=== PATIENT | female | born 1985 | race Caucasian/White ===

== ENCOUNTER 2017-06-08 21:43 | Emergency (ER) | payer SELFPAY | END 2017-06-08 22:58 | disposition home or self-care (01) | LOC: D.ER 21:43 | DX: S63.501A Unspecified sprain of right wrist, initial encounter (principal); X50.0XXA Overexertion from strenuous movement or load, initial encounter; Y93.89 Activity, other specified; Y92.029 Unspecified place in mobile home as the place of occurrence of the external cause; F17.200 Nicotine dependence, unspecified, uncomplicated ==

== ENCOUNTER 2017-10-25 09:29 | Emergency (ER) | payer MEDICAID | END 2017-10-25 10:30 | disposition home or self-care (01) | LOC: D.ER 09:29 | DX: M79.642 Pain in left hand (principal); M79.641 Pain in right hand; F17.200 Nicotine dependence, unspecified, uncomplicated ==

== ENCOUNTER 2017-12-17 09:48 | Emergency (ER) | payer MEDICAID ==
[2017-12-17 10:45] LABS: BASOPHILS 0.3 % (0-2); EOSINOPHILS 1.2 % (0-7); HEMATOCRIT 39.6 % (36.0-48.0); HEMOGLOBIN 13.4 g/dL (12-16); IMMATURE GRANULOCYTES 0.3 % (0-5); LYMPHOCYTES 18.1 % (15-50); MCH 30.2 pg (26.0-34.0); MCHC 33.8 g/dL (31.0-37.0); MCV 89.4 fL (80.0-100.0); MEAN PLATELET VOLUME 9.9 fL (7.4-10.4); NEUTROPHILS 72.1 % (40-80); PLATELET COUNT 298 10x3/uL (130-400); RBC 4.43 10x6/uL (4.00-5.40); RDW 14.6 % (11.5-14.5); WBC 11.9 10x3/uL (4.8-10.8)
[2017-12-17 10:57] LABS: HCG SERUM POSITIVE (NEGATIVE)
[2017-12-17 12:18] LABS: APPEARANCE CLEAR (CLEAR); BILIRUBIN NEGATIVE (NEGATIVE); COLOR PINK (YELLOW); GLUCOSE NEGATIVE (NEGATIVE); KETONE NEGATIVE (NEGATIVE); NITRITE NEGATIVE (NEGATIVE); PROTEIN NEGATIVE (NEGATIVE); SPECIFIC GRAVITY 1.005 (1.005-1.020); UROBILINOGEN NORMAL (NORMAL)
[2017-12-17 12:19] LABS: BACTERIA MODERATE /hpf (NONE SEEN); WHITE CELLS - URINE 0-5 /hpf (0-5)
== END 2017-12-17 12:45 | disposition home or self-care (01) ==
LOC: D.ER 09:48
PROVIDERS: Emergency Medicine
DX: O23.41 Unspecified infection of urinary tract in pregnancy, first trimester (principal); Z3A.08 8 weeks gestation of pregnancy; N76.0 Acute vaginitis; B96.89 Other specified bacterial agents as the cause of diseases classified elsewhere

== ENCOUNTER → 2018-06-07 15:26 | Outpatient (CLI) | payer MEDICAID ==
[2018-06-07 16:20] LABS: APPEARANCE CLEAR (CLEAR); BILIRUBIN NEGATIVE (NEGATIVE); COLOR YELLOW (YELLOW); GLUCOSE NEGATIVE (NEGATIVE); KETONE NEGATIVE (NEGATIVE); NITRITE NEGATIVE (NEGATIVE); PROTEIN NEGATIVE (NEGATIVE); SPECIFIC GRAVITY 1.015 (1.005-1.020); UROBILINOGEN NORMAL (NORMAL)
[2018-06-07 16:22] LABS: UDS - AMPHET NEGATIVE QUAL (NEGATIVE); UDS - BARB NEGATIVE QUAL (NEGATIVE); UDS - BENZO NEGATIVE QUAL (NEGATIVE); UDS - COCAINE NEGATIVE QUAL (NEGATIVE); UDS - OPIATE NEGATIVE QUAL (NEGATIVE); UDS - PCP NEGATIVE QUAL (NEGATIVE); UDS - THC POSITIVE QUAL (NEGATIVE)
[2018-06-07 16:27] LABS: BACTERIA FEW /hpf (NONE SEEN); EPITHELIAL CELLS 0-5 /hpf (0-5); WHITE CELLS - URINE 0-5 /hpf (0-5)
== END | disposition home or self-care (01) ==
LOC: D.LDO 15:26
PROVIDERS: Obstetrics & Gynecology
DX: O26.893 Other specified pregnancy related conditions, third trimester (principal); Z3A.31 31 weeks gestation of pregnancy

== ENCOUNTER → 2018-06-21 10:20 | Outpatient (CLI) | payer MEDICAID ==
[2018-06-21 11:33] LABS: APPEARANCE CLEAR (CLEAR); BILIRUBIN NEGATIVE (NEGATIVE); COLOR YELLOW (YELLOW); GLUCOSE NEGATIVE (NEGATIVE); KETONE NEGATIVE (NEGATIVE); NITRITE NEGATIVE (NEGATIVE); PROTEIN NEGATIVE (NEGATIVE); UROBILINOGEN NORMAL (NORMAL)
[2018-06-21 11:35] LABS: BACTERIA MODERATE /hpf (NONE SEEN); EPITHELIAL CELLS 0-5 /hpf (0-5); RED CELLS - URINE 0-5 /hpf (0-5); WHITE CELLS - URINE 0-5 /hpf (0-5)
== END | disposition home or self-care (01) ==
LOC: D.LDO 10:20
PROVIDERS: Obstetrics & Gynecology
DX: O26.893 Other specified pregnancy related conditions, third trimester (principal); Z3A.31 31 weeks gestation of pregnancy

== ENCOUNTER → 2018-07-02 09:46 | Outpatient (CLI) | payer MEDICAID ==
[2018-07-02 10:38] LABS: APPEARANCE CLEAR (CLEAR); BACTERIA MODERATE /hpf (NONE SEEN); BILIRUBIN NEGATIVE (NEGATIVE); COLOR YELLOW (YELLOW); GLUCOSE NEGATIVE (NEGATIVE); KETONE NEGATIVE (NEGATIVE); MUCUS <1+ /lpf (NONE SEEN); NITRITE NEGATIVE (NEGATIVE); PROTEIN NEGATIVE (NEGATIVE); RED CELLS - URINE RARE /hpf (0-5); UROBILINOGEN NORMAL (NORMAL); WHITE CELLS - URINE OCC /hpf (0-5)
== END | disposition home or self-care (01) ==
LOC: D.LDO 09:46
PROVIDERS: Obstetrics & Gynecology
DX: O26.899 Other specified pregnancy related conditions, unspecified trimester (principal); Z3A.00 Weeks of gestation of pregnancy not specified; R10.9 Unspecified abdominal pain

== ENCOUNTER 2018-07-12 01:56 | Outpatient (CLI) | payer MEDICAID ==
[2018-07-12 01:26] LABS: APPEARANCE CLEAR (CLEAR); BILIRUBIN NEGATIVE (NEGATIVE); COLOR YELLOW (YELLOW); GLUCOSE NEGATIVE (NEGATIVE); KETONE NEGATIVE (NEGATIVE); NITRITE NEGATIVE (NEGATIVE); PROTEIN NEGATIVE (NEGATIVE); UROBILINOGEN NORMAL (NORMAL)
[2018-08-08 09:39] VITALS: BMI 41.3
== END 2018-07-12 02:07 | disposition home or self-care (01) ==
LOC: D.LDO 01:56
PROVIDERS: Obstetrics & Gynecology
DX: O26.893 Other specified pregnancy related conditions, third trimester (principal); Z3A.36 36 weeks gestation of pregnancy; R10.30 Lower abdominal pain, unspecified; R10.2 Pelvic and perineal pain

== ENCOUNTER → 2018-07-20 09:00 | Outpatient (CLI) | payer MEDICAID ==
[~2018-07-20 09:00] MED LIST: ALBUTEROL SULF8.5 GM; IBUPROFEN600 MG PO; NORCO 10-325 TA1 TAB PO; PEPCID AC20 MG
[2018-08-08 09:39] VITALS: BMI 41.3
== END | disposition home or self-care (01) ==
LOC: D.LDO 09:00
DX: O36.8130 Decreased fetal movements, third trimester, not applicable or unspecified (principal); Z3A.37 37 weeks gestation of pregnancy; Z37.9 Outcome of delivery, unspecified

== ENCOUNTER → 2018-07-25 14:38 | Outpatient (CLI) | payer MEDICAID ==
[2018-08-08 09:39] VITALS: BMI 41.3
== END | disposition home or self-care (01) ==
LOC: D.LDO 14:38
DX: O26.893 Other specified pregnancy related conditions, third trimester (principal); Z3A.38 38 weeks gestation of pregnancy

== ENCOUNTER 2018-07-28 05:14 | Inpatient (IN) | payer MEDICAID ==
[~2018-07-28] VITALS: Ht 162.6 cm; Wt 117.9 kg
[2018-07-28 05:25] VITALS: BP 121/64; Ht 162.6 cm; Wt 117.9 kg
[2018-07-28 06:12] LABS: HEMOGLOBIN 11.3 g/dL (12-16); MCH 30.1 pg (26.0-34.0); MCHC 33.2 g/dL (31.0-37.0); MCV 90.7 fL (80.0-100.0); MEAN PLATELET VOLUME 9.8 fL (7.4-10.4); RBC 3.75 10x6/uL (4.00-5.40); RDW 15.1 % (11.5-14.5); WBC 19.1 10x3/uL (4.8-10.8)
[2018-07-28 06:50] LABS: APPEARANCE CLEAR (CLEAR); BILIRUBIN NEGATIVE (NEGATIVE); COLOR YELLOW (YELLOW); GLUCOSE NEGATIVE (NEGATIVE); KETONE NEGATIVE (NEGATIVE); NITRITE NEGATIVE (NEGATIVE); PROTEIN NEGATIVE (NEGATIVE); UROBILINOGEN NORMAL (NORMAL)
[2018-07-28 07:13] LABS: UDS - AMPHET NEGATIVE QUAL (NEGATIVE); UDS - BARB NEGATIVE QUAL (NEGATIVE); UDS - BENZO NEGATIVE QUAL (NEGATIVE); UDS - COCAINE NEGATIVE QUAL (NEGATIVE); UDS - OPIATE NEGATIVE QUAL (NEGATIVE); UDS - PCP NEGATIVE QUAL (NEGATIVE); UDS - THC NEGATIVE QUAL (NEGATIVE)
[2018-07-29 07:29] LABS: RAPID PLASMA REAGIN Non Reactive (Non Reactive)
== END 2018-07-28 21:00 | disposition home or self-care (01) | DRG 833 ==
LOC: D.LD 05:14
PROVIDERS: Obstetrics & Gynecology
PROC: 3E033VJ Introduction of Other Hormone into Peripheral Vein, Percutaneous Approach (ICD-10-PCS; principal; 2018-07-28)
DX: O99.213 Obesity complicating pregnancy, third trimester (principal); Z3A.39 39 weeks gestation of pregnancy; Z87.891 Personal history of nicotine dependence; O99.820 Streptococcus B carrier state complicating pregnancy; O26.893 Other specified pregnancy related conditions, third trimester; Z67.91 Unspecified blood type, Rh negative; O61.0 Failed medical induction of labor

== ENCOUNTER 2018-07-31 05:07 | Inpatient (IN) | payer MEDICAID ==
[~2018-07-31] VITALS: Ht 162.6 cm; Wt 117.9 kg
[2018-07-31] VITALS (13 sets, daily range): BP systolic 113–135; BP diastolic 62–90; Ht 162.6 cm; Wt 117.9 kg
[2018-07-31] MEDS ORDERED: ALBUTEROL SULF8.5 GM (05:34)
[2018-07-31] MEDS ORDERED: PEPCID AC20 MG (05:36)
[2018-07-31 06:45] LABS: HEMATOCRIT 32.5 % (36.0-48.0); HEMOGLOBIN 10.8 g/dL (12-16); MCH 29.6 pg (26.0-34.0); MCHC 33.2 g/dL (31.0-37.0); MEAN PLATELET VOLUME 9.9 fL (7.4-10.4); RBC 3.65 10x6/uL (4.00-5.40); WBC 21.6 10x3/uL (4.8-10.8)
[2018-07-31 07:01] LABS: APPEARANCE HAZY (CLEAR); BILIRUBIN NEGATIVE (NEGATIVE); COLOR YELLOW (YELLOW); GLUCOSE NEGATIVE (NEGATIVE); KETONE NEGATIVE (NEGATIVE); NITRITE NEGATIVE (NEGATIVE); PH 6.5 (5.0-6.0); PROTEIN NEGATIVE (NEGATIVE); UROBILINOGEN NORMAL (NORMAL)
[2018-07-31 07:58] LABS: UDS - AMPHET NEGATIVE QUAL (NEGATIVE); UDS - BARB NEGATIVE QUAL (NEGATIVE); UDS - BENZO NEGATIVE QUAL (NEGATIVE); UDS - COCAINE NEGATIVE QUAL (NEGATIVE); UDS - OPIATE NEGATIVE QUAL (NEGATIVE); UDS - PCP NEGATIVE QUAL (NEGATIVE); UDS - THC NEGATIVE QUAL (NEGATIVE)
[2018-07-31 20:17] LABS: BASOPHILS 0.4 % (0-2); EOSINOPHILS 1.1 % (0-7); HEMATOCRIT 29.9 % (36.0-48.0); HEMOGLOBIN 9.9 g/dL (12-16); MCHC 33.1 g/dL (31.0-37.0); MCV 90.6 fL (80.0-100.0); MEAN PLATELET VOLUME 9.9 fL (7.4-10.4); MONOCYTES 5.8 % (2-11); NEUTROPHILS 75.7 % (40-80); PLATELET COUNT 361 10x3/uL (130-400); WBC 23.9 10x3/uL (4.8-10.8)
[2018-08-01 04:08] LABS: RAPID PLASMA REAGIN Non Reactive (Non Reactive)
[2018-08-01 04:32] VITALS: BP 122/58
[2018-08-01 06:27] LABS: HEMATOCRIT 30.2 % (36.0-48.0); HEMOGLOBIN 10.4 g/dL (12-16); RBC 3.45 10x6/uL (4.00-5.40); WBC 21.1 10x3/uL (4.8-10.8)
[2018-08-01 06:28] LABS: LYMPHOCYTES 11.9 % (15-50); MCH 30.1 pg (26.0-34.0); MCHC 34.4 g/dL (31.0-37.0); MCV 87.5 fL (80.0-100.0); MEAN PLATELET VOLUME 9.9 fL (7.4-10.4); NEUTROPHILS 83.9 % (40-80); PLATELET COUNT 390 10x3/uL (130-400); RDW 14.5 % (11.5-14.5)
[2018-08-01 07:25] VITALS: BP 113/55
[2018-08-01] MEDS ORDERED: NORCO 10-325 TA1 TAB PO (09:56)
[2018-08-01] MEDS ORDERED: IBUPROFEN600 MG PO (09:57)
== END 2018-08-01 13:15 | disposition home or self-care (01) | DRG 788 ==
LOC: D.LD 05:07
PROVIDERS: Obstetrics & Gynecology
PROC: 10907ZC Drainage of Amniotic Fluid, Therapeutic from Products of Conception, Via Natural or Artificial Opening (ICD-10-PCS; 2018-07-31)
PROC: 3E033VJ Introduction of Other Hormone into Peripheral Vein, Percutaneous Approach (ICD-10-PCS; 2018-07-31)
PROC: 10D00Z1 Extraction of Products of Conception, Low, Open Approach (ICD-10-PCS; principal; 2018-07-31 13:42)
DX: O99.824 Streptococcus B carrier state complicating childbirth (principal); Z3A.39 39 weeks gestation of pregnancy; Z37.0 Single live birth; O32.6XX0 Maternal care for compound presentation, not applicable or unspecified; O99.334 Smoking (tobacco) complicating childbirth

== ENCOUNTER 2018-08-08 09:17 | Emergency (ER) | payer MEDICAID ==
[~2018-08-08] VITALS: Ht 162.6 cm; Wt 109.1 kg
[2018-08-08 09:39] VITALS: Ht 162.6 cm; Wt 109.1 kg
[2018-08-08 11:44] VITALS: BP 122/77
== END 2018-08-08 11:45 | disposition home or self-care (01) ==
LOC: D.ER 09:17
DX: O90.0 Disruption of cesarean delivery wound (principal); F17.200 Nicotine dependence, unspecified, uncomplicated

== ENCOUNTER 2019-02-16 14:04 | Emergency (ER) | payer MEDICAID ==
[2019-02-16 14:27] VITALS: BMI 36.4
[2019-02-16] MEDS ORDERED: VIBRAMYCIN 100100 MG PO (16:17)
[2019-02-16] MEDS ORDERED: TORADOL10 MG PO (16:17)
[2019-02-16 16:42] VITALS: BP 129/73
== END 2019-02-16 16:43 | disposition home or self-care (01) ==
LOC: D.ER 14:04
DX: L02.31 Cutaneous abscess of buttock (principal); H01.003 Unspecified blepharitis right eye, unspecified eyelid

== ENCOUNTER 2019-05-31 17:31 | Emergency (ER) | payer MEDICAID ==
[~2019-05-31] VITALS: Ht 162.6 cm; Wt 90.9 kg
[~2019-05-31 17:31] MED LIST changes: +TORADOL10 MG PO; +VIBRAMYCIN 100100 MG PO
[2019-05-31 18:03] VITALS: BP 129/86; Ht 162.6 cm; Wt 90.9 kg
[2019-05-31] MEDS ORDERED: NAPROSYN500 MG PO (19:35)
[2019-05-31] MEDS ORDERED: CLEOCIN HCL300 MG PO (19:35)
== END 2019-05-31 20:10 | disposition home or self-care (01) ==
LOC: D.ER 17:31
DX: S01.511A Laceration without foreign body of lip, initial encounter (principal); W19.XXXA Unspecified fall, initial encounter

== ENCOUNTER 2020-05-17 20:28 | Emergency (ER) | payer MEDICAID ==
[~2020-05-17] VITALS: Ht 162.6 cm; Wt 104.5 kg
[~2020-05-17 20:28] MED LIST changes: +CLEOCIN HCL300 MG PO; +NAPROSYN500 MG PO
[2020-05-17 20:38] VITALS: BP 130/68; Ht 162.6 cm; Wt 104.5 kg
== END 2020-05-17 21:00 | disposition left against medical advice (07) ==
LOC: D.ER 20:28
DX: M79.89 Other specified soft tissue disorders (principal)